=== PATIENT | female | born 1945 | race Caucasian/White ===

== ENCOUNTER 2022-01-17 05:25 | Inpatient (IN) | payer BC ==
[2022-01-07 16:36] LABS: BASOPHILS % (AUTO) 0.4 % (0-1); EOSINOPHILS # (AUTO) 0.2 X10'3 (0-0.9); LYMPHOCYTES # (AUTO) 1.8 X10'3 (1.1-4.8); LYMPHOCYTES % (AUTO) 19.9 % (21-51); MEAN CORPUSCULAR HEMOGLOBIN 32.5 PG (27.0-31.0); MEAN CORPUSCULAR HGB CONC 33.5 g/dL (33.0-36.5); MEAN CORPUSCULAR VOLUME 97.2 FL (78-98); MEAN PLATELET VOLUME 7.2 FL (7.4-10.4); MONOCYTES # (AUTO) 0.7 X10'3 (0-0.9); MONOCYTES % (AUTO) 7.5 % (2-12); NEUTROPHILS # (AUTO) 6.5 X10'3 (1.8-7.7); NEUTROPHILS % (AUTO) 70.2 % (42-75); PRE OP HEMATOCRIT 36.8 % (35.0-45.0); PRE OP HEMOGLOBIN 12.3 g/dL (12.0-16.0); PRE OP PLATELET COUNT 242 X10'3 (140-440); RED BLOOD COUNT 3.79 X10'6 (4.20-5.60); RED CELL DISTRIBUTION WIDTH 13.6 % (11.5-14.5)
[2022-01-07 16:50] LABS: ALBUMIN 4.4 G/DL (3.4-5.0); ALBUMIN/GLOBULIN RATIO 1.6 (1.1-1.5); ALKALINE PHOSPHATASE 85 IU/L (46-116); BLOOD UREA NITROGEN 23 MG/DL (7-18); BUN/CREATININE RATIO 21.3 (6.6-38.0); CALCIUM 9.1 MG/DL (8.5-10.1); CHLORIDE 104 MMOL/L (99-107); CREATININE 1.08 MG/DL (0.40-0.90); PRE OP ALT 19 U/L (30-65); PRE OP ANION GAP 13 (8-16); PRE OP AST 14 U/L (10-37); PRE OP BILIRUB, TOTAL 0.4 MG/DL (0.0-1.0); PRE OP GLUCOSE 102 MG/DL (70-104); PRE OP POTASSIUM 3.9 MMOL/L (3.4-5.1); PRE OP SODIUM 143 MMOL/L (135-145); TOTAL CARBON DIOXIDE 25.9 MMOL/L (24-32); TOTAL PROTEIN 7.2 G/DL (6.4-8.2); eGFR 49 ML/MIN
[~2022-01-17] VITALS: Ht 157.5 cm; Wt 58.2 kg
[2022-01-17] VITALS (26 sets, daily range): BP systolic 109–175; BP diastolic 37–87
[~2022-01-17 05:25] MED LIST: ALBU8.5H17 INH; ATOR40TA72 PO; CITA40TA30 PO; NITR100C PO; TROS20TA4 PO; [UNRECOGNIZED DRUG - OTHER] INH
[2022-01-17] MEDS ORDERED: famotidine 20mg tablet PO ONE (05:30)
[2022-01-17] MEDS ORDERED: ceFAZolin 2gm in dextrose, iso 50 ML IV ONE (06:15)
[2022-01-17] MEDS: ringers solution, lacted 1,000 ML IV SCH ×2 (06:24→17:50)
[2022-01-17] MEDS ORDERED: bacitracin 15gm ointment TP ONE (06:54)
--- NOTE | 2022-01-17 07:00 | NUR ---
LEFT FOOT IS PINK WARM AND DRY, NO BRUISING OR SIGNS OF INJURY PRESENT. 2ND TOE HAS A SMALL RED SPOT APPEARS TO BE PRESSURE INJURY FROM SHOE. POSTERIOR TIBIAL PULSE IS PALPABLE. SENSATION INTACT
[2022-01-17] MEDS ORDERED: sevoflurane 250ml liquid IH ONE (07:41)
[2022-01-17] MEDS ORDERED: midazolam 1 mg/ML 2ml injection ONE (08:01)
[2022-01-17 08:07] LABS: CLARITY,URINE CLEAR (Clear); COLOR,URINE YELLOW (Yellow); GLUCOSE, URINE NEGATIVE (Neg); KETONES,URINE NEGATIVE (Neg); LEUKOCYTE ESTERASE ,URINE NEGATIVE (Neg); NITRITES, URINE NEGATIVE (Neg); OCCULT BLOOD,URINE NEGATIVE (Neg); PROTEIN,URINE NEGATIVE (Neg); UROBILINOGEN,URINE 0.2 E.U/dL (0.2-1.0)
[2022-01-17 08:08] LABS: UA COLLECTION TYPE CLN CATCH MIDSTREAM
[2022-01-17] MEDS ORDERED: propofol inj 20 ML IV ONE (08:09)
[2022-01-17] MEDS ORDERED: LIDOcaine 2% (20mg/ml) 5ml vial ONE (08:10)
[2022-01-17] MEDS ORDERED: ROPIVAcaine 0.5% (5mg/ml) 30ml vial ONE (08:10)
[2022-01-17] MEDS ORDERED: FENTANYL CITRATE/PF 50 MCG/1 ML VIAL ONE (08:12)
[2022-01-17] MEDS ORDERED: dexamethasone sod phosphate 4mg/ml inj. ONE (08:14)
[2022-01-17] MEDS ORDERED: ondansetron/PF 4mg/2ml inj ONE (08:15)
[2022-01-17] MEDS ORDERED: morphine 2 MG/ML inj. syringe IV PRN (08:35)
[2022-01-17] MEDS ORDERED: fentaNYL/PF 50MCG/1 ML 2ML syringe IV PRN ×2 (08:35)
[2022-01-17] MEDS ORDERED: hydrALAZINE 20mg/ml inj. IV PRN (08:35)
[2022-01-17] MEDS ORDERED: labetalol 20mg/4ml (5mg/ml) syringe IV PRN (08:35)
[2022-01-17] MEDS ORDERED: ondansetron/PF 4mg/2ml inj IV PRN ×3 (08:35→13:15)
[2022-01-17] MEDS ORDERED: morphine 4 MG/ML inj SYRINge IV PRN (08:35)
[2022-01-17] MEDS ORDERED: ringers solution, lacted 1,000 ML IV SCH (08:35)
[2022-01-17] MEDS ORDERED: BUPIVAcaine 0.5% inj/PF 30 ML ONE (09:06)
[2022-01-17] MEDS ORDERED: hydrALAZINE 20mg/ml inj. IV ONE (09:44)
[2022-01-17] MEDS ORDERED: diphenhydrAMINE 25mg capsule PO PRN (09:55)
[2022-01-17] MEDS ORDERED: magnesium hydroxide 30ml (MOM) UD suspension PO PRN ×2 (09:55→13:15)
[2022-01-17] MEDS ORDERED: mag hydrox/Alum hydrox/simeth 30ml oral suspension PO PRN ×2 (09:55→13:15)
[2022-01-17] MEDS ORDERED: acetaminophen 325mg tablet PO PRN ×3 (09:55→13:15)
--- NOTE | 2022-01-17 09:55 | NUR ---
Received from OR via BED, accompanied by Anesthesiologist MAGDY and report given by Anesthesiolgist. PT DROWSY,OXYGENATING WELL ON 10 LPM 02 VIA MASK, NO RESP DISTRESS NOTED. PT DENIES ANY NAUSEA OR PAIN AT HIS TIME. HAD R ANKLE BLOCK DONE IN OR. RLE BOOT/SPLINT IN PLACE, R TOES P/W/D. VSS. IV INFILTRATED, RESTARTED IN R AC
--- NOTE | 2022-01-17 12:30 | NUR ---
Report called to receiving nurse. Transferred via BED Belongings SENT WITH PT, 1 BAG OF CLOTHING. PT WAS INCONTINENT OF URINE X 2, YESSI CARE AND LINEN CHANGE COMPLETED. DENIES ANY PAIN, VSS. TOLERATING PO FLUIDS WELL. TRANSFERRED TO 3 SURG IN STABLE CONDITION. Special Issues communicated to receiving nurse.
[2022-01-17] MEDS ORDERED: potassium Cl 20 mEq SR tablet PO PRN ×2 (13:15)
[2022-01-17] MEDS ORDERED: potassium CL 10mEq/100ml bag 100 ML IV PRN (13:15)
[2022-01-17] MEDS ORDERED: magnesium 2GM in 50ml NS 50 ML IV PRN (13:15)
[2022-01-17] MEDS ORDERED: HYDROmorphone inj. 0.5 MG/0.5 ML DISP.SYRIN IV PRN (13:15)
[2022-01-17] MEDS ORDERED: magnesium 4gm in 100ml NS 100 ML IV PRN (13:15)
[2022-01-17] MEDS ORDERED: HYDROmorphone/PF 0.2 MG/ML SYRINGE IV PRN (13:15)
[2022-01-17] MEDS ORDERED: magnesium Cl slow-release 64mg tablet PO PRN (13:15)
[2022-01-17] MEDS ORDERED: normal saline 1000ml 1,000 ML IV SCH (13:15)
[2022-01-17] MEDS: HYDROcodone/acetaminophen 10/325mg tab PO PRN ×2 (13:20→20:21)
[2022-01-17 14:03] LABS: POTASSIUM 4.1 MMOL/L (3.5-5.1)
[2022-01-17] MEDS: albuterol 2.5 MG/3 ML nebule NEB SCH ×2 (15:59→23:16)
--- NOTE | 2022-01-17 18:05 | NUR ---
Patient in room [facility]. I have received report from RADHA Quiñonez and had the opportunity to ask questions and assume patient care.
--- NOTE | 2022-01-17 18:15 | NUR ---
Patient in room [facility]. I have received report from RADHA Chandler and had the opportunity to ask questions and assume patient care.
--- NOTE | 2022-01-17 18:28 | NUR ---
Gave report to Roshni GARCIA.
[2022-01-17] MEDS ORDERED: enoxaparin 40mg/0.4ml syringe SQ SCH (20:00)
[2022-01-17] MEDS: K and/or MAG REPLACEMENT MC SCH (20:00)
[2022-01-17] MEDS: docusate sod 100mg capsule PO SCH ×2 (20:00→20:19)
[2022-01-17] MEDS: oxybutynin 5mg tablet PO SCH (20:20)
[2022-01-17] MEDS: nitrofurantoin macrocrystal 50mg capsule PO SCH (20:20)
[2022-01-17] MEDS: budesonide 0.5mg/2ml UD nebule IH SCH (23:16)
[2022-01-18 00:01] VITALS: BP 148/56
[2022-01-18] MEDS: HYDROcodone/acetaminophen 10/325mg tab PO PRN ×2 (04:56→10:35)
[2022-01-18 06:01] LABS: BASOPHILS % (AUTO) 0 % (0-1); EOSINOPHILS % (AUTO) 0 % (0-6); HEMATOCRIT 31.6 % (35.0-45.0); HEMOGLOBIN 10.4 g/dl (12.0-16.0); LYMPHOCYTES # (AUTO) 0.7 X10'3 (1.1-4.8); LYMPHOCYTES % (AUTO) 4.4 % (21-51); MEAN CORPUSCULAR HEMOGLOBIN 32.1 PG (27.0-31.0); MEAN CORPUSCULAR VOLUME 97.4 FL (78-98); MEAN PLATELET VOLUME 7.7 FL (7.4-10.4); MONOCYTES # (AUTO) 1.4 X10'3 (0-0.9); MONOCYTES % (AUTO) 8.8 % (2-12); NEUTROPHILS # (AUTO) 13.4 X10'3 (1.8-7.7); NEUTROPHILS % (AUTO) 86.8 % (42-75); PLATELET COUNT 219 X10'3 (140-440); RED BLOOD COUNT 3.25 X10'6 (4.20-5.60); RED CELL DISTRIBUTION WIDTH 13.6 % (11.5-14.5); WHITE BLOOD COUNT 15.4 X10'3 (4.5-11.0)
[2022-01-18 06:07] LABS: ALBUMIN 3.5 G/DL (3.4-5.0); ANION GAP 9 (8-16); BLOOD UREA NITROGEN 20 MG/DL (7-18); CALCIUM 8.3 MG/DL (8.5-10.1); CHLORIDE 107 MMOL/L (99-107); GLUCOSE 156 MG/DL (70-104); POTASSIUM 3.7 MMOL/L (3.5-5.1); SODIUM 142 MMOL/L (135-145); TOTAL CARBON DIOXIDE 26.4 MMOL/L (24-32); eGFR 54 ML/MIN
--- NOTE | 2022-01-18 06:21 | NUR ---
Problems reprioritized. Patient report given, questions answered & plan of care reviewed with RADHA Pierre.
[2022-01-18 07:00] VITALS: BP 145/73
--- NOTE | 2022-01-18 07:18 | NUR ---
Patient in room [facility]. I have received report from Roshni GARCIA and had the opportunity to ask questions and assume patient care.
[2022-01-18] MEDS: oxybutynin 5mg tablet PO SCH (07:32)
[2022-01-18] MEDS: nitrofurantoin macrocrystal 50mg capsule PO SCH (07:32)
[2022-01-18] MEDS: docusate sod 100mg capsule PO SCH ×2 (07:33→08:00)
[2022-01-18] MEDS ORDERED: enoxaparin 40mg/0.4ml syringe SUBCUT SCH (08:00)
[2022-01-18] MEDS: K and/or MAG REPLACEMENT MC SCH (08:00)
[2022-01-18] MEDS ORDERED: citalopram 20mg tablet PO SCH (08:00)
[2022-01-18] MEDS ORDERED: atorvastatin 20mg tablet PO SCH (08:00)
--- NOTE | 2022-01-18 10:19 | NUR ---
PAGER ID: [phone] MESSAGE: Gabby Surg 1355 Re: [facility] please call re: patient confused and have pain medication questions
[2022-01-18 11:00] VITALS: BP 116/41
[2022-01-18] MEDS: budesonide 0.5mg/2ml UD nebule IH SCH (11:43)
[2022-01-18] MEDS: albuterol 2.5 MG/3 ML nebule NEB SCH (11:43)
[2022-01-18] MEDS ORDERED: DOCU100C40 PO (12:16)
[2022-01-18] MEDS ORDERED: APIX5TAB3 PO (12:16)
[2022-01-18] MEDS ORDERED: HYDR-3965 PO ×2 (12:16)
--- NOTE | 2022-01-18 12:32 | NUR ---
Dr Mendieta wanting to get patient home health and home PT at her daughters house. Daughter is Mirta Simeon : [address] [place] [address] Phone number is [phone] Krissy with case management aware.
== END 2022-01-18 14:25 | disposition home health service (06) | DRG 504 ==
LOC: EDBD 05:25 → PAS 05:25 → SUR 3N 09:58 → OBSVTOIN 13:17
PROVIDERS: ADMIT Podiatrist Foot & Ankle Surgery; ATTEND Podiatrist Foot & Ankle Surgery
PROC: 0QBP0ZZ Excision of Left Metatarsal, Open Approach (ICD-10-PCS; 2022-01-17)
PROC: 0QBP0ZZ Excision of Left Metatarsal, Open Approach (ICD-10-PCS; 2022-01-17)
PROC: 0QBP0ZZ Excision of Left Metatarsal, Open Approach (ICD-10-PCS; 2022-01-17)
PROC: 0QBP0ZZ Excision of Left Metatarsal, Open Approach (ICD-10-PCS; 2022-01-17)
PROC: 3E0T3BZ Introduction of Anesthetic Agent into Peripheral Nerves and Plexi, Percutaneous Approach (ICD-10-PCS; 2022-01-17)
PROC: 3E0T33Z Introduction of Anti-inflammatory into Peripheral Nerves and Plexi, Percutaneous Approach (ICD-10-PCS; 2022-01-17)
PROC: 0SGN04Z Fusion of Left Metatarsal-Phalangeal Joint with Internal Fixation Device, Open Approach (ICD-10-PCS; principal; 2022-01-17 07:41)
DX: M19.072 Primary osteoarthritis, left ankle and foot (principal); J84.9 Interstitial pulmonary disease, unspecified; M20.22 Hallux rigidus, left foot; M20.42 Other hammer toe(s) (acquired), left foot; E78.5 Hyperlipidemia, unspecified; Z79.01 Long term (current) use of anticoagulants; Z79.899 Other long term (current) drug therapy; Z88.0 Allergy status to penicillin; Z88.5 Allergy status to narcotic agent; Z86.718 Personal history of other venous thrombosis and embolism
CPT/HCPCS: 36415; 71046; 73620; 76000; 80048; 80053; 81003; 82948; 83735; 84132; 85025; 87081; 93005; 94640; 97116; 97162; 97530; A4215; A4618; A6223; A6449; A7000; C1713; G0378; J0360; J0690; J1100; J1650; J2250; J2405; J2704; J2795; J3010; J3490; J7120; L4360; S0020; U0003; U0005